=== PATIENT | male | born 1985 | race Two or more races ===

== ENCOUNTER 2018-05-11 21:29 | Emergency (ER) | payer OTHER ==
[~2018-05-11] VITALS: Ht 188 cm; Wt 59.0 kg
--- NOTE | 2018-05-11 22:00 | NUR ---
TO BED 4 BIB FAMILY MEMBER C/O EPIGASTRIC PAIN WITH N/V X1 DAY. PT AAOX4 NO ACUTE DISTRESS NOTED, RESP EVEN AND UNLABORED. PT STATES "IT'S MU ULCER". PENDING ER MD MAYES.
[2018-05-11] MEDS ORDERED: LIDOCAINE VISCOUS 2% UD 15 ML UDC ONE (22:20)
[2018-05-11] MEDS ORDERED: ONDANSETRON HCL/PF 4 MG/2 ML VIAL ONE (22:20)
[2018-05-11] MEDS ORDERED: MAG HYDROX/AL HYDROX/SIMETH 30 ML UDC ONE (22:20)
--- NOTE | 2018-05-11 22:20 | NUR ---
STARTED SL 18G TO LFA, BLOOD DRAWN AND SENT TO LAB.
[2018-05-11] MEDS ORDERED: ONDANSETRON HCL/PF 4 MG/2 ML VIAL IVP ONE (22:30)
[2018-05-11] MEDS ORDERED: IV NS 0.9% 1,000 ML BAG IV ONE (22:30)
[2018-05-11] MEDS ORDERED: MAG HYDROX/AL HYDROX/SIMETH 30 ML UDC PO ONE (22:30)
[2018-05-11] MEDS ORDERED: LIDOCAINE VISCOUS 2% UD 15 ML UDC MM ONE (22:30)
--- NOTE | 2018-05-11 22:30 | NUR ---
RN AT BEDSIDE TO MEDICATE PT.
[2018-05-11 22:33] LABS: BASOPHILS % (AUTO) 0.2 % (0.0-2.0); EOSINOPHILS % (AUTO) 0.1 % (0.0-6.0); HEMATOCRIT 44 % (39-51); HEMOGLOBIN 14.7 g/dL (13.5-17.5); LYMPHOCYTES # (AUTO) 1.3 /CMM (0.8-4.8); LYMPHOCYTES % (AUTO) 12.2 % (20.0-44.0); MEAN CORPUSCULAR HGB CONC 33 g/dl (31.0-36.0); MEAN CORPUSCULAR VOLUME 90 fL (80-96); MONOCYTES # (AUTO) 0.4 /CMM (0.1-1.30); NEUTROPHILS # (AUTO) 8.9 /CMM (1.8-8.9); NEUTROPHILS % (AUTO) 83.5 % (43.0-81.0); PLATELET COUNT (AUTO) 260 /CMM (150-450); RED BLOOD CELL COUNT(AUTO) 4.87 MIL/uL (4.5-6.0); WHITE BLOOD COUNT (AUTO) 10.7 K/uL (4.3-11.0)
[2018-05-11 22:43] LABS: CALCIUM, SERUM 9.6 mg/dL (8.5-10.1); POTASSIUM 3.7 mmol/L (3.5-5.1)
[2018-05-11 22:49] LABS: ALBUMIN 4.3 g/dL (3.4-5.0); BILIRUBIN,DIRECT 0.1 mg/dL (0.0-0.2); BILIRUBIN,TOTAL 0.4 mg/dL (0.2-1.0); TOTAL PROTEIN, SERUM 8.3 g/dL (6.4-8.2)
--- NOTE | 2018-05-11 23:25 | NUR ---
HUNTER ROACH AT BEDSIDE.
[2018-05-11] MEDS ORDERED: MORPHINE SULFATE INJ 4 MG/ML DISP.SYRIN ONE (23:26)
[2018-05-11] MEDS ORDERED: PANTOPRAZOLE 40 MG VIAL ONE (23:26)
[2018-05-11] MEDS ORDERED: PANTOPRAZOLE 80 MG in IV NS 0.9% 500 ML IV ONE (23:30)
[2018-05-11] MEDS ORDERED: MORPHINE SULFATE INJ 2 MG/ML DISP.SYRIN IV ONE (23:30)
--- NOTE | 2018-05-11 23:30 | NUR ---
ADDENDUM: Intravenous End Time Documentation: Protonix 80 mg IVPB: start time: 2330 PM ; end time: 46 (05/12/18) : IV site:LAC # 18 Port #1
--- NOTE | 2018-05-12 00:44 | NUR ---
IV removed. Catheter intact and site benign. Pressure and 4x4 applied to site. No bleeding noted. Patient discharged to home in stable condition. Written and verbal after care instructions given. Patient verbalizes understanding of instruction. ambulatory with a steady gait noted. pt aaox4 no acute distress noted, resp even and unlabored. advice pt not to drive or operate any machinery due to pt was given narcotic medicine. pt verbalize udnerstanding.
[2018-05-12 00:47] VITALS: BP 127/65
== END 2018-05-12 00:47 | disposition home or self-care (01) ==
LOC: ER 21:31
DX: K27.9 Peptic ulcer, site unspecified, unspecified as acute or chronic, without hemorrhage or perforation (principal); Z60.2 Problems related to living alone
CPT/HCPCS: 36415; 76705; 80048; 80076; 83690; 85025; 96361; 96365; 96375; 99284; A4606; C9113; J2270; J2405; J7030; Z7610